=== PATIENT | male | born 2000 | race Two or more races ===

== ENCOUNTER 2024-12-22 20:02 | Inpatient (IN) | payer OTHER ==
[~2024-12-22] VITALS: Ht 172.7 cm; Wt 74.4 kg
--- NOTE | 2024-12-22 21:55 | DVH ---
Exam: CT CT AB PEL WO CON-NO ORAL OR IV History: Left-sided flank pain Comparison Study: None TECHNIQUE: Multidetector CT of the abdomen and pelvis was performed from lung bases to pubic symphysi s. Imaging was performed without IV contrast. Axial, coronal, and sagittal multiplanar reformats were obtained from the axial data set by the technologist. RADIATION DOSE: CTDI vol 6.23 mGy. DLP 325.33 mGy.cm Findings: Limited evaluation of the solid organs in the absence of IV contrast. Liver: Unremarkable. Spleen: Unremarkable. Pancreas: Unremarkable. Gallbladder: Unremarkable. Adrenals: Unremarkable Kidneys: 4 mm calculus situated within the left proximal ureter with mild upstream hydroureteronephro sis. Bilateral nonobstructing renal calculi. Pelvic Viscera: Unremarkable. Vasculature: Unremarkable. Retroperitoneum: Unremarkable. Bowel: No bowel obstruction. Musculoskeletal: Unremarkable. Soft tissues: Unremarkable Lungs: The lung bases are clear. Impression: 1. 4 mm calculus situated within the left proximal ureter with mild upstream hydroureteronephrosis. 2. Bilateral nephrolithiasis.
[2024-12-22 22:38] LABS: Urine Protein, UAD TRACE (Negative)
--- NOTE | 2024-12-22 23:00 | ED.PDOC ---
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 Patient has a history of kidney stones. Patient states the pain has increased with the point now where he can not sit or stand or sleep. Patient denies any fever or vomiting but states intermittent nausea. Vital signs were stable on arrival. Chief Complaint: Flank Pain Time Seen by MD: 21:14 Reviewed notes: Nurses Notes Information Source: Patient Mode of Arrival: Ambulatory Severity: Moderate Timing: Days Duration: Since onset Prehospital treatment: None Onset: Spontaneous Symptoms: None History of: Kidney stone Location: (L)Flank Penile discharge: None Modifying factors: None associated signs and symptoms: Nausea Past Medical History PAST MEDICAL HISTORY: Kidney Stones Surgical History: Denies all surgeries Family History Family History: Reviewed,noncontributory to illness, No family hx of Cancer, No family hx of DM, No family hx of Heart zaheer, No family hx of HTN, No family hx ofKidney zaheer, No family hx of Liver zaheer, No family hx of Lung zaheer, No family hx of Stroke Social History Smoker: Non-Smoker Alcohol: Denies ETOH Use Drugs: Denies Drug Use Lives In: Home Constitutional: denies: chills, diaphoresis, fatigue, fever, malaise, sweats, weakness, others EENTM: denies: blurred vision, double vision, ear bleeding, ear discharge, ear drainage, ear pain, ear ringing, eye pain, eye redness, hearing loss, mouth pain, mouth swelling, nasal discharge, nose bleeding, nose congestion, nose pain, photophobia, tearing, throat pain, throat swelling, voice changes, others Respiratory: denies: cough, hemoptysis, orthopnea, SOB at rest, shortness of breath, SOB with excertion, stridor, wheezing, others Cardiovascular: denies: chest pain, dizzy spells, diaphoresis, Dyspnea on exertion, edema, irregular heart beat, left arm pain, lightheadedness, p alpitations, PND, syncope, others Gastrointestinal: denies: abdomen distended, abdominal pain, blood streaked bowels, constipated, diarrhea, dysphagia, difficulty swallowing, hematemesis, melena, nausea, poor appetite, poor fluid intake, rectal bleeding, rectal pain, vomiting, others Genitourinary: reports: flank pain (Left-sided); denies: burning, dysuria, frequency, hematuria, incontinence, penile discharge, penile sore, pain, testicle pain, testicle swelling, urgency, others Neurological: denies: dizziness, fainting, headache, left sided numbness, left sided weakness, numbness, paresthesia, pre-existing deficit, right sided numbness, right sided weakness, seizure, speech problems, tingling, tremors, weakness, others Musculoskeletal: denies: back pain, gout, joint pain, joint swelling, muscle pain, muscle stiffness, neck pain, others Integumetry: denies: bruises, change in color, change in hair/nails, dryness, laceration, lesions, lumps, rash, wounds, others Allergic/Immunocompromised: denies: Difficulty Healing, Frequent Infections, Hives, Itching, others Hematologic/Lymphatic: denies: anemia, blood clots, easy bleeding, easy bruising, swollen glands, others Endocrine: denies: excessive hunger, excessive sweating, excessive thirst, excessive urination, flushing, intolerance to cold, intolerance to heat, unexplained weight gain, unexplained weight loss, others Psychiatric: denies: anxiety, bipolar disorder, depression, hopeless, panic disorder, schizophrenia, sleepless, suicidal, others Physical Exam General Appearance: Moderate Distress (Moderate distress due to left-sided flank pain concerns.), Normal HEENT: Normal ENT Inspection, Pharynx Normal, TMs Normal Neck: Full Range of Motion, Non-Tender, Normal, Normal Inspection Respiratory: Chest Non-Tender, Lungs Clear, No Accessory Muscle Use, No Respiratory Distress, Normal Breath Sounds Cardiovascular: No Edema, No JVD, No Murmur, No Gallop, Normal Peripheral Pulses, Regular Rate/Rhythm Breast Exam: Deferred Gastrointestinal: Other (Positive CVA tenderness on left flank region extending into the belly. No signs of trauma. No pulsatile masses.) Genitalia: Deferred Pelvic: Deferred Rectal: Deferred Extremities: No calf tenderness, Normal capillary refill, Normal inspection, Normal range of motion, Non-tender, No pedal edema Neurologic: Alert, No Motor Deficits, Normal Affect, Normal Mood, No Sensory Deficits Cerebellar Function: NOT DONE Reflexes: NOT DONE Skin: Dry, Normal Color, Warm Lymphatic: No Adenopathy Was a procedure done? Was a procedure done?: No Differential Diagnosis Kidney stone (Female): Urolithiasis, Other (Pyelonephritis, UTI, musculoskeletal pain) X-Ray, Labs, Meds, VS Vital Signs Date Time Temp Pulse Resp B/P (MAP) Pulse Ox O2 Delivery O2 Flow Rate FiO2 12/22/24 20:05 98.1 88 20 149/54 95 98.1 Lab Test 12/22/24 22:00 Range/Units Urine Color Yellow Yellow Urine Clarity Clear Clear Urine pH 6.5 5.0-9.0 Urine Specific [place] 1.032 1.001-1.035 Urine Protein Trace H Negative Urine Ketones 2+ H Negative Urine Blood Negative Negative /uL Urine Nitrite Negative Negative Urine Bilirubin Negative Negative Urine Urobilinogen 4 H Negative mg/dL Urine Leukocyte Esterase Negative Negative /uL Urine RBC 3 0 - 3 /hpf Urine Microscopic WBC 1 0-3 /HPF Urine Squamous Epithelial Cells None seen <5 /hpf Urine Bacteria None seen None Seen /hpf Urine Mucus Few None Seen Urine Glucose Normal Normal mg/dL X-Ray, Labs, Meds, VS Comment All studies performed the ED were evaluated by me personally. Urinalysis was unremarkable for any UTI or even much red blood cell deposition. CT of the abdomen revealed a left-sided 4 mm occlusive stone with hydronephrosis noted. Patient will be admitted for pain management and possible lithotripsy procedure. Time of 1ST Reevaluation: 22:59 Reevaluation 1ST: Improved Consultation: PCP Patient Education/Counseling: Diagnosis, Treatment Family Education/Counseling: Diagnosis, Treatment SEPSIS Sepsis Screen Date sepsis recognized/suspect: Dec 22, 2024 Time Sepsis recognized/suspect: 2009 Recent Procedure: No On Antibiotic Therapy: No Respiratory Rate >20: No Heart Rate >90: No Temp<36 C (96.8 F) or >38.3 C: No SBP <90 or MAP <65 mmHG: No New Acute Mental Status Change: No Is the patient on CPAP, BIPAP,: No Physician Orders Ct Ab Pel Wo Con-No Oral Or Iv (12/22/24 21:19) Vital Signs Date Time Temp Pulse Resp B/P (MAP) Pulse Ox O2 Delivery O2 Flow Rate FiO2 12/22/24 20:05 98.1 88 20 149/54 95 98.1 Departure 1 Departure Time of Disposition: 22:59 Impression: Primary Impression: Hydronephrosis concurrent with and due to calculi of kidney and ureter Disposition: 09 ADMITTED INPATIENT Condition: Stable Discharged With: Self Critical Care Note Critical Care Time?: No Stability Stability form required: No Heart Score Heart Score: Heart Score Response (Comments) Value History N/A 0 EKG N/A 0 Age N/A 0 Risk Factors N/A 0 Troponin N/A 0 Total 0 NADIYA TYLER PAC Dec 22, 2024 23:00
[2024-12-22] MEDS ORDERED: MORPHINE SULFATE INJ 2 MG/ml SYRG IV PRN (23:30)
[2024-12-23 00:04] LABS: Hematocrit 44.1 % (41.0-53.0); Hemoglobin 15.9 g/dL (13.5-17.5); Mean Corpuscular Hemoglobin 30.4 pg (28.0-32.0); Mean Corpuscular Volume 84.3 fL (80.0-100.0); Nucleated Red Blood Cells % 0.0 %
[2024-12-23 00:06] LABS: Amphetamine Screen, Urine Neg (NEGATIVE); Barbiturate Scree,Urine Neg (NEGATIVE); Benzodiazephine Screen, Urine Neg (NEGATIVE); Cannabinoid Screen, Urine Neg (NEGATIVE); Cocaine Screen, Urine Neg (NEGATIVE); Opiate Scree,Urine Neg (NEGATIVE); Phencyclidine Screen, Urine Neg (NEGATIVE)
--- NOTE | 2024-12-23 00:06 | DVH ---
CHEST RADIOGRAPH Indication: R/O Lung diseases, SOB Technique: Single frontal view of the chest was obtained Comparison: None FINDINGS/IMPRESSION: The lungs are clear. The cardiomediastinal silhouette is unremarkable. No pleural effusion or pneumo thorax. No acute osseous abnormality.
--- NOTE | 2024-12-23 00:19 | DVHHPRES ---
History of Present Illness Resident Creating Document: SANJUANA ZAMORANO RESIDENT History of Present Illness 24-year-old male presents to the ER with sudden onset of severe, colicky left flank pain radiating to the left lower abdomen and ipsilateral groin/testicle, pain began abruptly 48 hours prior to arrival, is intermittent and associated with nausea, no hematuria reported, patient denies fever, chills, trauma, shortness of breath, chest pain or any urinary symptoms today. The patient is a shag truck driver, the pain became so unbearable that he was not able to drive anymore and came to the ER. No notable history of prior nephrolithiasis. Past medical history: None Past surgical history: None Home medications: NSAIDs for the pain episodes Smoking: Never Drug abuse: Never Alcohol: Never Patient lives with his friend in an apartment Code status: Full code Allergies: None PCP: None Review of Systems Gastrointestinal: Abdominal Pain Allergies: Coded Allergies: NO KNOWN ALLERGIES (Unverified , 12/23/24) Medications Current Medications Medications Dose Ordered Sig/Tianna Route Start Time Stop Time Status Last Admin Dose Admin Sodium Chloride 1,000 ml @ 125 mls/hr Q8H IV 12/22/24 23:30 UNV Tamsulosin HCl 0.4 mg DAILY PO 12/23/24 10:00 UNV Morphine Sulfate 2 mg Q6HP PRN IV 12/22/24 23:30 UNV Exam Vital Signs Vital Signs Date Time Temp Pulse Resp B/P (MAP) Pulse Ox O2 Delivery O2 Flow Rate FiO2 12/22/24 20:05 98.1 88 20 149/54 95 98.1 Exam Pt is lying on bed General Appearance: Alert, Oriented X3, Cooperative, Mild distress HEENT: Atraumatic, Mucous membranes moist/pink Respiratory: Clear to auscultation, Normal air movement, No added sounds Cardiovascular: Regular rate, Normal S1, Normal S2, No murmurs Abdominal/ : Active bowel sounds, Soft, no distention, no tenderness Extremities: No edema, Normal pulses, No tenderness/swelling Skin: No Significant rash, except past surgical scars Neuro: Normal speech, sensorimotor deficits none Psych/Mental Status: Mental status NL, Mood NL Nurse was there as manager of application development during examination Labs/Xrays Labs Test 12/22/24 23:48 12/22/24 22:00 Range/Units White Blood Count 9.4 4.4-10.8 10^3/uL Red Blood Count 5.23 4.5-5.90 10^6/uL Hemoglobin 15.9 13.5-17.5 g/dL Hematocrit 44.1 41.0-53.0 % Mean Corpuscular Volume 84.3 80.0-100.0 fL Mean Corpuscular Hemoglobin 30.4 28.0-32.0 pg Mean Corpuscular Hemoglobin Concent 36.1 H 32.0-36.0 g/dL Red Cell Distribution Width 12.5 11.8-14.3 % Platelet Count 235 140-450 10^3/uL Mean Platelet Volume 8.0 6.9-10.8 fL Neutrophils (%) (Auto) 76.4 37.0-80.0 % Lymphocytes (%) (Auto) 15.3 10.0-50.0 % Monocytes (%) (Auto) 7.1 0.0-12.0 % Eosinophils (%) (Auto) 0.9 0.0-7.0 % Basophils (%) (Auto) 0.3 0.0-2.0 % Neutrophils # (Auto) 7.2 1.6-8.6 10 ^3/uL Lymphocytes # (Auto) 1.4 0.4-5.4 10 ^3/uL Monocytes # (Auto) 0.7 0-1.3 10 ^3/uL Eosinophils # (Auto) 0.1 0-0.8 10 ^3/uL Basophils # (Auto) 0 0-0.2 10 ^3/uL Nucleated Red Blood Cells 0.0 % Urine Color Yellow Yellow Urine Clarity Clear Clear Urine pH 6.5 5.0-9.0 Urine Specific [place] 1.032 1.001-1.035 Urine Protein Trace H Negative Urine Ketones 2+ H Negative Urine Blood Negative Negative /uL Urine Nitrite Negative Negative Urine Bilirubin Negative Negative Urine Urobilinogen 4 H Negative mg/dL Urine Leukocyte Esterase Negative Negative /uL Urine RBC 3 0 - 3 /hpf Urine Microscopic WBC 1 0-3 /HPF Urine Squamous Epithelial Cells None seen <5 /hpf Urine Bacteria None seen None Seen /hpf Urine Mucus Few None Seen Urine Glucose Normal Normal mg/dL Urine Opiates Screen Neg NEGATIVE Urine Fentanyl Screen Neg NEGATIVE Urine Barbiturates Screen Neg NEGATIVE Urine Phencyclidine Screen Neg NEGATIVE Urine Amphetamines Screen Neg NEGATIVE Urine Benzodiazepines Screen Neg NEGATIVE Urine Cocaine Screen Neg NEGATIVE Urine Cannabinoids Screen Neg NEGATIVE SEPSIS Sepsis Screen Date sepsis recognized/suspect: Dec 22, 2024 Time Sepsis recognized/suspect: 2009 Recent Procedure: No On Antibiotic Therapy: No Respiratory Rate >20: No Heart Rate >90: No Temp<36 C (96.8 F) or >38.3 C: No SBP <90 or MAP <65 mmHG: No New Acute Mental Status Change: No Is the patient on CPAP, BIPAP,: No Physician Orders Ct Ab Pel Wo Con-No Oral Or Iv (12/22/24 21:19) Sodium Chloride 0.9% (12/22/24 23:00) Heplock Iv (12/22/24 ) Comprehensive Metabolic Panel (12/22/24 23:29) Lactic Acid W/ Reflex Order (12/23/24 04:00) Thyroid Stimulating Hormone (12/22/24 23:29) Chest Xray 1 View (12/22/24 23:29) Sodium Chloride 0.9% (12/22/24 23:30) Tamsulosin Hydrochloride (Flomax) (12/22/24 23:30) Tamsulosin Hydrochloride (Flomax) (12/23/24 10:00) Morphine Sulfate Injection (12/22/24 23:30) * Urology Consult (12/22/24 23:29) Vital Signs Date Time Temp Pulse Resp B/P (MAP) Pulse Ox O2 Delivery O2 Flow Rate FiO2 12/22/24 20:05 98.1 88 20 149/54 95 98.1 Laboratory Tests Test 12/22/24 23:48 White Blood Count 9.4 10^3/uL (4.4-10.8) Assessment/Plan Assessment/Plan Flank pain due to nephrolithiasis CT abdomen and pelvis: 4 mm calculus situated within the left proximal ureter with mild upstream hydroureteronephrosis. Bilateral nephrolithiasis. -IV fluid -morphine -ondansetron -tamsulosin -urology consult GI prophylaxis: Not indicated DVT prophylaxis: Not indicated Diet: Regular Goals of care discussed with the patient for more than 27 minutes: Full code status Case discussed with , patient and RN Plan discussed with: Patient, Other (RN) SANJUANA ZAMORANO RESIDENT Dec 23, 2024 00:19
[2024-12-23 00:24] LABS: Alanine Aminotransferase 16 U/L (7-40); Albumin 4.8 g/dL (3.2-4.8); Alkaline Phosphatase 105 U/L (46-116); Anion Gap 10 (5-15); BUN/Creatinine Ratio 10.2 (10.0-20.0); Blood Urea Nitrogen 17 mg/dL (9-23); Calcium 9.8 mg/dL (8.7-10.4); Carbon Dioxide 27 mmol/L (20-31); Chloride 102 mmol/L (98-107); Glucose 91 mg/dL (74-106); Potassium 4.3 mmol/L (3.5-5.1); Sodium 139 mmol/L (136-145); Total Protein 7.5 g/dL (5.7-8.2)
[2024-12-23 00:35] LABS: Bilirubin, Total 1.3 mg/dL (0.2-1.0)
[2024-12-23] MEDS: SODIUM CHLORIDE 0.9% 1,000 ML IV ONE (01:47)
[2024-12-23] MEDS: KETOROLAC TROMETH 60MG/2ML VIAL IM ONE (01:47)
[2024-12-23] MEDS: HYDROmorphone HCL 2 MG/ML VL/or syr IV ONE (02:29)
[2024-12-23] MEDS: SODIUM CHLOR 0.9% PF (SALINE LOCK) 10ML VIAL/SYR IV SCH (07:32)
[2024-12-23] MEDS: TAMSULOSIN HYDROCHLORIDE 0.4 MG CAP PO ONE (07:34)
[2024-12-23] MEDS: SODIUM CHLORIDE 0.9% 1,000 ML IV SCH ×2 (07:35)
[2024-12-23 07:40] VITALS: TEMP 97.8
[2024-12-23] MEDS: MORPHINE SULFATE INJ 2 MG/ml SYRG IV PRN (07:40)
[2024-12-23] MEDS: TAMSULOSIN HYDROCHLORIDE 0.4 MG CAP PO SCH (10:10)
[2024-12-23] MEDS: MORPHINE SULFATE 4 MG/ML SYR/VIAL IV ONE (12:55)
[2024-12-23 13:39] VITALS: BP 136/88; PULSE 87; RESP 16; O2SAT 97
[2024-12-23] MEDS ORDERED: ACETAMINOPHEN 325 MG TAB PO PRN (14:15)
--- NOTE | 2024-12-23 14:46 | DVHPNRES ---
Progress Note Date Seen: Dec 23, 2024 Resident Creating Document: ELIJAH TAPIA RESIDENT Medical Necessity Reason Pt with a Central, PICC or Fol: No Subjective Review of Systems Patient is a 24 year old male patient who presented to the ER 3 with a sudden onset of severe, colicky left flank pain radiating to the left lower abdomen and groin. The pain is sharp and stabbing in character and is associated with nausea. The pain started as a 10/10 in intensity and the patient says it has gotten worse since then. The patient denies any fever, chills or hematuria. The abdominal CT shows a 4mm calculus in left proximal ureter with mild hydronephrosis amd B/L nephrolithiasis. The patient has a past history of nephrolithiasis 3 years ago for which he received medication to flush the calculus out and has not had any symptoms since then. Urology consultation was done. Past medical history: history of nephrolithiasis 3 years back Past surgical history: none Home medications: none Social & Personal history: no history of smoking , alcohol or drug use. Patient lives in an apartment with his friend. Allergies: none Patient seen and examined at bedside. Patient is alert and oriented to time, place person and responding to all questions. Patient is in distress because of pain. Eyes: No Pain, No Vision change, No Conjunctivae inflammation, No Eyelid inflammation, No Other, No Redness ENT: No Ear pain, No Ear discharge, No Nose pain, No Nose discharge, No Nose congestion, No Mouth pain, No Mouth swelling, No Throat pain, No Throat swelling, No Other Cardiovascular: No Chest Pain, No Palpitations, No Orthopnea, No Paroxysmal No Dyspnea, No Edema, No Lt Headedness, No Other Respiratory: No Cough, No Dry, No Shortness of breath, No SOB with exertion, No Wheezing, No Hemoptysis, No Pleuritic Pain, No Sputum, No Other Gastrointestinal: Nausea, No Vomiting,Left flank pain radiating to left lower abdomen, No Diarrhea, No Constipation, No Melena, No Hematochezia, No Other Genitourinary: No Dysuria, No Frequency, No Incontinence, No Hematuria, No Retention, No Other Musculoskeletal: No other, No neck pain, No shoulder pain, No arm pain, No back pain, No hand pain, No leg pain, No foot pain Skin: No Rash, No Lesions, No Jaundice, No Bruising, No Other Objective vital signs Vital Sign Date Time Temp Pulse Resp B/P (MAP) Pulse Ox O2 Delivery O2 Flow Rate FiO2 12/23/24 13:39 87 16 136/88 (104) 97 12/23/24 07:40 Room Air 12/23/24 07:40 97.8 97.8 medications Current Medications Medications Dose Ordered Sig/Tianna Route Start Time Stop Time Status Last Admin Dose Admin Sodium Chloride 1,000 ml @ 125 mls/hr Q8H IV 12/22/24 23:30 12/23/24 07:38 125 MLS/HR Tamsulosin HCl 0.4 mg DAILY PO 12/23/24 10:00 12/23/24 10:10 0.4 MG Morphine Sulfate 2 mg Q6HP PRN IV 12/22/24 23:30 Sodium Chloride 10 ml Q8HR IV 12/23/24 06:00 12/23/24 07:32 10 ML Sodium Chloride 1,000 ml @ 60 mls/hr [id number] IV 12/23/24 00:30 Examination General Appearance: Cooperative. Well developed. Well nourished. Patient in distress because of pain. Head Exam: Normal inspection Neck Exam: Normal inspection. Non-tender. Normal alignment Pulmonary/Respiratory: Chest non-tender. Clear bilateral breath sounds, no crackles, no wheezing. Cardiovascular/Chest: Regular rate and rhythm. No murmurs. No JVD. Peripheral Pulses: 2+ Radial (R). 2+ Radial (L). 2+ Pedal (R). 2+ Pedal (L) Abdominal Exam: Tenderness on palpation of left flank and left lower abdomen, Normal bowel sounds, no visible veins, No hepatospenomegaly. No masses Ankle Exam: Negative ankle edema Lower extremities: Negative lower extremity edema Neuro/Mental Status: A&O x4. Coherent. Thoughts/Psych: Normal thought pattern. Appropriate mood and affect. Good judgement and insight Skin Exam: Normal inspection. Normal color. Warm. Dry laboratory and microbiology Laboratory Tests 12/22/24 23:48 Test 12/22/24 23:48 Range/Units Serum Glucose 91 74-106 mg/dL Labs and/or images reviewed: Labs reviewed by me, Image(s) reviewed by me Problem List/Assessment/Plan Problem List/Assessment/Plan # Severe intractable left flank pain likely due to B/L Nephrolithiasis with 4 mm calculus in left proximal ureter # Hydroureteronephrosis due to above - CTAP: 4mm calculus in left proximal ureter with mild hydroureteronephrosis and B/L hydronephrosis - UA: urine ketones 2+, urine urobilinogen 4+ - flomax 0.4 mg PO daily -morphine 2 mg iv q6 - iv dilaudid 1mg iv - IV NS @ 125cc/h -acetaminophen tablet 500mg po q4 Urology on board # YEYO due to VMN - IV NS @ 125cc/hr - monitor # Hyperbilirubinemia - we will follow LFTs PUD prophylaxis: not indicated DVT prophylaxis: patient is ambulatory Goals of care: Full code discussed for 15 minutes on 12/23/[address] Trinidad Plan discussed with: Patient, Other (RN) My Orders My Orders Orders - ELIJAH TAPIA RESIDENT Procedure Category Date Status Time Acetaminophen Tablet PHA 12/23/24 Logged (Tylenol Tablet) 14:15 ELIJAH TAPIA RESIDENT Dec 23, 2024 14:46 BLANE SANCHEZ RESIDENT Dec 23, 2024 15:43
--- NOTE | 2024-12-23 14:51 | DVHPNRES ---
Progress Note Medical Necessity Reason Pt with a Central, PICC or Fol: No Objective vital signs Vital Sign Date Time Temp Pulse Resp B/P (MAP) Pulse Ox O2 Delivery O2 Flow Rate FiO2 12/23/24 13:39 87 16 136/88 (104) 97 12/23/24 07:40 Room Air 12/23/24 07:40 97.8 97.8 medications Current Medications Medications Dose Ordered Sig/Tianna Route Start Time Stop Time Status Last Admin Dose Admin Sodium Chloride 1,000 ml @ 125 mls/hr Q8H IV 12/22/24 23:30 12/23/24 07:38 125 MLS/HR Tamsulosin HCl 0.4 mg DAILY PO 12/23/24 10:00 12/23/24 10:10 0.4 MG Morphine Sulfate 2 mg Q6HP PRN IV 12/22/24 23:30 Sodium Chloride 10 ml Q8HR IV 12/23/24 06:00 12/23/24 07:32 10 ML Sodium Chloride 1,000 ml @ 60 mls/hr [id number] IV 12/23/24 00:30 laboratory and microbiology Laboratory Tests 12/22/24 23:48 Test 12/22/24 23:48 Range/Units Serum Glucose 91 74-106 mg/dL Problem List/Assessment/Plan Problem List/Assessment/Plan 1. YEYO due to VMN 2. Repeat bilirubin 3. Nephrolithiasis -4 mm calculus in left proximal ureter with mild hydronephrosis and B/L nephrolithiasis My Orders My Orders Orders - ELIJAH TAPIA RESIDENT Procedure Category Date Status Time Acetaminophen Tablet PHA 12/23/24 Logged (Tylenol Tablet) 14:15 ELIJAH TAPIA RESIDENT Dec 23, 2024 14:51 BLANE SANCHEZ RESIDENT Dec 23, 2024 15:39
[2024-12-23] MEDS ORDERED: HYDROmorphone HCL 2 MG/ML VL/or syr IV ONE (15:15)
--- NOTE | 2024-12-23 19:44 | DVHINCON2 ---
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 Patient has a history of kidney stones. Patient states the pain has increased with the point now where he can not sit or stand or sleep. Patient denies any fever or vomiting but states intermittent nausea. Vital signs were stable on arrival. CT scan shows bilateral nephrolithiasis with 4 mm proximal left ureteral calculus causing very mild hydronephrosis. His creatinine is elevated at 1.67 Chief Complaint: Flank Pain Reviewed notes: Nurses Notes Information Source: Patient Mode of Arrival: Ambulatory Severity: Moderate Timing: Days Duration: Since onset Prehospital treatment: None Onset: Spontaneous Symptoms: None History of: Kidney stone Location: (L)Flank Penile discharge: None Modifying factors: None associated signs and symptoms: Nausea Past Medical History Kidney Stones Allergies: Coded Allergies: NO KNOWN ALLERGIES (Unverified , 12/23/24) Current Medications Current Medications Medications (Trade) Dose Ordered Sig/Tianna Route PRN Reason Start Time Stop Time Status Last Admin Sodium Chloride 1,000 ml @ 125 mls/hr Q8H IV 12/22/24 23:30 12/23/24 07:38 Tamsulosin HCl (Flomax) 0.4 mg DAILY PO 12/23/24 10:00 12/23/24 10:10 Morphine Sulfate 2 mg Q6HP PRN IV PAin 12/22/24 23:30 Sodium Chloride (Saline Lock Ns) 10 ml Q8HR IV 12/23/24 06:00 12/23/24 14:44 Sodium Chloride 1,000 ml @ 60 mls/hr [id number] IV 12/23/24 00:30 12/23/24 14:08 DC Morphine Sulfate 2 mg Q4HPRN PRN IV SEVERE PAIN (7-10 PAIN SCALE) 12/23/24 00:30 12/23/24 14:04 DC 12/23/24 07:40 Acetaminophen (Tylenol Tablet) 500 mg Q4HP PRN PO MILD PAIN (1-3 PAIN SCALE) 12/23/24 14:15 Review of Systems Constitutional: denies: chills, diaphoresis, fatigue, fever, malaise, sweats, weakness, others EENTM: denies: blurred vision, double vision, ear bleeding, ear discharge, ear drainage, ear pain, ear ringing, eye pain, eye redness, hearing loss, mouth pain, mouth swelling, nasal discharge, nose bleeding, nose congestion, nose pain, photophobia, tearing, throat pain, throat swelling, voice changes, others Respiratory: denies: cough, hemoptysis, orthopnea, SOB at rest, shortness of breath, SOB with excertion, stridor, wheezing, others Cardiovascular: denies: chest pain, dizzy spells, diaphoresis, Dyspnea on exertion, edema, irregular heart beat, left arm pain, lightheadedness, palpitations, PND, syncope, others Gastrointestinal: denies: abdomen distended, abdominal pain, blood streaked bowels, constipated, diarrhea, dysphagia, difficulty swallowing, hematemesis, melena, nausea, poor appetite, poor fluid intake, rectal bleeding, rectal pain, vomiting, others Genitourinary: reports: flank pain (Left-sided); denies: burning, dysuria, frequency, hematuria, incontinence, penile discharge, penile sore, pain, testicle pain, testicle swelling, urgency, others Neurological: denies: dizziness, fainting, headache, left sided numbness, left sided weakness, numbness, paresthesia, pre-existing deficit, right sided numbness, right sided weakness, seizure, speech problems, tingling, tremors, weakness, others Musculoskeletal: denies: back pain, gout, joint pain, joint swelling, muscle pain, muscle stiffness, neck pain, others Integumetry: denies: bruises, change in color, change in hair/nails, dryness, laceration, lesions, lumps, rash, wounds, others Allergic/Immunocompromised: denies: Difficulty Healing, Frequent Infections, Hives, Itching, others Hematologic/Lymphatic: denies: anemia, blood clots, easy bleeding, easy bruising, swollen glands, others Endocrine: denies: excessive hunger, excessive sweating, excessive thirst, excessive urination, flushing, intolerance to cold, intolerance to heat, unexplained weight gain, unexplained weight loss, others Psychiatric: denies: anxiety, bipolar disorder, depression, hopeless, panic disorder, schizophrenia, sleepless, suicidal, others Vital Signs Vital Signs Date Time Temp Pulse Resp B/P (MAP) Pulse Ox O2 Delivery O2 Flow Rate FiO2 12/23/24 14:45 Room Air* 0 21 12/23/24 13:39 87 16 136/88 (104) 97 12/23/24 07:40 97.8 97.8 Physical Exam General Appearance: Moderate Distress (Moderate distress due to left-sided flank pain concerns.), Normal HEENT: Normal ENT Inspection, Pharynx Normal, TMs Normal Neck: Full Range of Motion, Non-Tender, Normal, Normal Inspection Respiratory: Chest Non-Tender, Lungs Clear, No Accessory Muscle Use, No Respiratory Distress, Normal Breath Sounds Cardiovascular: No Edema, No JVD, No Murmur, No Gallop, Normal Peripheral Pulses, Regular Rate/Rhythm Breast Exam: Deferred Gastrointestinal: Other (Positive CVA tenderness on left flank region extending into the belly. No signs of trauma. No pulsatile masses.) Genitalia: Normal Extremities: No calf tenderness, Normal capillary refill, Normal inspection, Normal range of motion, Non-tender, No pedal edema Neurologic: Alert, No Motor Deficits, Normal Affect, Normal Mood, No Sensory Deficits Cerebellar Function: NOT DONE Reflexes: NOT DONE Skin: Dry, Normal Color, Warm Lymphatic: No Adenopathy Labs/Diagnostic Data Labs Test 12/23/24 05:10 12/22/24 23:48 12/22/24 22:00 Range/Units Lactic Acid Level 1.0 0.4-2.0 mmol/L White Blood Count 9.4 4.4-10.8 10^3/uL Red Blood Count 5.23 4.5-5.90 10^6/uL Hemoglobin 15.9 13.5-17.5 g/dL Hematocrit 44.1 41.0-53.0 % Mean Corpuscular Volume 84.3 80.0-100.0 fL Mean Corpuscular Hemoglobin 30.4 28.0-32.0 pg Mean Corpuscular Hemoglobin Concent 36.1 H 32.0-36.0 g/dL Red Cell Distribution Width 12.5 11.8-14.3 % Platelet Count 235 140-450 10^3/uL Mean Platelet Volume 8.0 6.9-10.8 fL Neutrophils (%) (Auto) 76.4 37.0-80.0 % Lymphocytes (%) (Auto) 15.3 10.0-50.0 % Monocytes (%) (Auto) 7.1 0.0-12.0 % Eosinophils (%) (Auto) 0.9 0.0-7.0 % Basophils (%) (Auto) 0.3 0.0-2.0 % Neutrophils # (Auto) 7.2 1.6-8.6 10 ^3/uL Lymphocytes # (Auto) 1.4 0.4-5.4 10 ^3/uL Monocytes # (Auto) 0.7 0-1.3 10 ^3/uL Eosinophils # (Auto) 0.1 0-0.8 10 ^3/uL Basophils # (Auto) 0 0-0.2 10 ^3/uL Nucleated Red Blood Cells 0.0 % Sodium Level 139 136-145 mmol/L Potassium Level 4.3 3.5-5.1 mmol/L Chloride Level 102 98-107 mmol/L Carbon Dioxide Level 27 20-31 mmol/L Anion Gap 10 5-15 Blood Urea Nitrogen 17 9-23 mg/dL Creatinine 1.67 H 0.700-1.30 mg/dL Glomerular Filtration Rate Calc 58 >90 mL/min BUN/Creatinine Ratio 10.2 10.0-20.0 Serum Glucose 91 74-106 mg/dL Calcium Level 9.8 8.7-10.4 mg/dL Total Bilirubin 1.3 H 0.2-1.0 mg/dL Aspartate Amino Transferase (AST) 18 13-40 U/L Alanine Aminotransferase (ALT) 16 7-40 U/L Alkaline Phosphatase 105 46-116 U/L Total Protein 7.5 5.7-8.2 g/dL Albumin 4.8 3.2-4.8 g/dL Thyroid Stimulating Hormone (TSH) 1.71 0.55-4.78 uIU/mL Urine Color Yellow Yellow Urine Clarity Clear Clear Urine pH 6.5 5.0-9.0 Urine Specific [place] 1.032 1.001-1.035 Urine Protein Trace H Negative Urine Ketones 2+ H Negative Urine Blood Negative Negative /uL Urine Nitrite Negative Negative Urine Bilirubin Negative Negative Urine Urobilinogen 4 H Negative mg/dL Urine Leukocyte Esterase Negative Negative /uL Urine RBC 3 0 - 3 /hpf Urine Microscopic WBC 1 0-3 /HPF Urine Squamous Epithelial Cells None seen <5 /hpf Urine Bacteria None seen None Seen /hpf Urine Mucus Few None Seen Urine Glucose Normal Normal mg/dL Urine Opiates Screen Neg NEGATIVE Urine Fentanyl Screen Neg NEGATIVE Urine Barbiturates Screen Neg NEGATIVE Urine Phencyclidine Screen Neg NEGATIVE Urine Amphetamines Screen Neg NEGATIVE Urine Benzodiazepines Screen Neg NEGATIVE Urine Cocaine Screen Neg NEGATIVE Urine Cannabinoids Screen Neg NEGATIVE Assessment 4 mm left proximal ureteral calculus Left flank pain Bilateral nephrolithiasis Plan/Recommendation Expulsive measures If failed conservative management, extracorporeal shockwave lithotripsy to be scheduled as inpatient or outpatient Plan discussed with: Patient, Other CHERYL GODOY MD Dec 23, 2024 19:44
[2024-12-23] MEDS ORDERED: MANNITOL FTV 25% 12.5 GM/50 ML 50 ML IV ONE (20:00)
--- NOTE | 2024-12-24 10:06 | DVHDSRES ---
Discharge Summary Date of Admission Resident Creating Document: ELIJAH TAPIA RESIDENT Dec 23, 2024 at 00:22 Date of Discharge: Dec 23, 2024 Admitting Diagnosis Nephroureterolithiasis Labs/Diagnostic Data: Laboratory Results Test 12/23/24 05:10 12/22/24 23:48 12/22/24 22:00 Lactic Acid Level 1.0 mmol/L (0.4-2.0) White Blood Count 9.4 10^3/uL (4.4-10.8) Red Blood Count 5.23 10^6/uL (4.5-5.90) Hemoglobin 15.9 g/dL (13.5-17.5) Hematocrit 44.1 % (41.0-53.0) Mean Corpuscular Volume 84.3 fL (80.0-100.0) Mean Corpuscular Hemoglobin 30.4 pg (28.0-32.0) Mean Corpuscular Hemoglobin Concent 36.1 g/dL (32.0-36.0) Red Cell Distribution Width 12.5 % (11.8-14.3) Platelet Count 235 10^3/uL (140-450) Mean Platelet Volume 8.0 fL (6.9-10.8) Neutrophils (%) (Auto) 76.4 % (37.0-80.0) Lymphocytes (%) (Auto) 15.3 % (10.0-50.0) Monocytes (%) (Auto) 7.1 % (0.0-12.0) Eosinophils (%) (Auto) 0.9 % (0.0-7.0) Basophils (%) (Auto) 0.3 % (0.0-2.0) Neutrophils # (Auto) 7.2 10 ^3/uL (1.6-8.6) Lymphocytes # (Auto) 1.4 10 ^3/uL (0.4-5.4) Monocytes # (Auto) 0.7 10 ^3/uL (0-1.3) Eosinophils # (Auto) 0.1 10 ^3/uL (0-0.8) Basophils # (Auto) 0 10 ^3/uL (0-0.2) Nucleated Red Blood Cells 0.0 % Sodium Level 139 mmol/L (136-145) Potassium Level 4.3 mmol/L (3.5-5.1) Chloride Level 102 mmol/L (98-107) Carbon Dioxide Level 27 mmol/L (20-31) Anion Gap 10 (5-15) Blood Urea Nitrogen 17 mg/dL (9-23) Creatinine 1.67 mg/dL (0.700-1.30) Glomerular Filtration Rate Calc 58 mL/min (>90) BUN/Creatinine Ratio 10.2 (10.0-20.0) Serum Glucose 91 mg/dL (74-106) Calcium Level 9.8 mg/dL (8.7-10.4) Total Bilirubin 1.3 mg/dL (0.2-1.0) Aspartate Amino Transferase (AST) 18 U/L (13-40) Alanine Aminotransferase (ALT) 16 U/L (7-40) Alkaline Phosphatase 105 U/L (46-116) Total Protein 7.5 g/dL (5.7-8.2) Albumin 4.8 g/dL (3.2-4.8) Thyroid Stimulating Hormone (TSH) 1.71 uIU/mL (0.55-4.78) Urine Color Yellow (Yellow) Urine Clarity Clear (Clear) Urine pH 6.5 (5.0-9.0) Urine Specific [place] 1.032 (1.001-1.035) Urine Protein Trace (Negative) Urine Ketones 2+ (Negative) Urine Blood Negative /uL (Negative) Urine Nitrite Negative (Negative) Urine Bilirubin Negative (Negative) Urine Urobilinogen 4 mg/dL (Negative) Urine Leukocyte Esterase Negative /uL (Negative) Urine RBC 3 /hpf (0 - 3) Urine Microscopic WBC 1 /HPF (0-3) Urine Squamous Epithelial Cells None seen /hpf (<5) Urine Bacteria None seen /hpf (None Seen) Urine Mucus Few (None Seen) Urine Glucose Normal mg/dL (Normal) Urine Opiates Screen Neg (NEGATIVE) Urine Fentanyl Screen Neg (NEGATIVE) Urine Barbiturates Screen Neg (NEGATIVE) Urine Phencyclidine Screen Neg (NEGATIVE) Urine Amphetamines Screen Neg (NEGATIVE) Urine Benzodiazepines Screen Neg (NEGATIVE) Urine Cocaine Screen Neg (NEGATIVE) Urine Cannabinoids Screen Neg (NEGATIVE) Other Laboratory Tests 12/22/24 23:48 Brief Hx & Hospital Course: Patient is a 24 year old male patient who presented to the ER with a sudden onset of severe, colicky left flank pain radiating to the left lower abdomen and groin. The pain was sharp and stabbing in character associated with nausea and a 10/10 in intensity .The abdominal CT showed a 4mm calculus in left proximal ureter with mild hydronephrosis and B/L nephrolithiasis. The patient had a past history of nephrolithiasis 3 years ago for which he received medication to flush the calculus out and has not had any symptoms since then. Urology consultation was done and expulsive measures were recommended. On failed conservative management, extracorporeal shockwave lithotripsy was recommended as inpatient or outpatient. However, patient left against medical advice before further evaluation and management could be completed. Unkown condition at the time of discharge. Condition at Discharge: Undetermined Final Diagnosis/Problems List # Severe intractable left flank pain likely due to B/L Nephrolithiasis with 4 mm calculus in left proximal ureter # Hydroureteronephrosis due to above # YEYO due to [facility] # Hyperbilirubinemia Discharge Disposition: AMA Discharge Statement: "Patient was advised to return to the ER or call 911 if any headaches, dizziness, shortness of breath, chest pain, abdominal pain, bleeding, fevers, or worsening of medical condition. Patient was counseled about treatment plan, medications, possible side effects, patientverbalized understanding. All questions were answered to the best of my ability. This discharge took greater then 30 minutes in planning, reviewing documentation, counseling the patient, and discussing with other team members." ASSESSMENT ASSESSMENT Assessment ELIJAH TAPIA RESIDENT Dec 24, 2024 10:06 BLANE SANCHEZ RESIDENT Dec 24, 2024 14:53
== END 2024-12-23 17:00 | disposition left against medical advice (07) | DRG 694 ==
LOC: ER 20:02 → CENTRAL 12-23 00:22 → OVERFLOW 12-23 04:02
PROVIDERS: ADMIT Internal Medicine Geriatric Medicine; ATTEND Physician Assistant
DX: N13.2 Hydronephrosis with renal and ureteral calculous obstruction (principal); N17.0 Acute kidney failure with tubular necrosis; E80.6 Other disorders of bilirubin metabolism; Z53.29 Procedure and treatment not carried out because of patient's decision for other reasons
CPT/HCPCS: 36415; 74176; 80053; 80307; 81001; 83605; 84443; 85025; 96361; 96374; G0378; J1885